=== PATIENT | male | born 1995 | race Caucasian/White ===

== ENCOUNTER 2020-12-31 18:08 | Emergency (ER) | payer OTHER ==
[2020-12-31 19:13] LABS: BASOPHILS % (AUTO) 0.3 %; EOSINOPHILS % (AUTO) 0.3 %; HGB - HEMOGLOBIN 14.8 g/dL (14.0-18.0); LYMPHOCYTES % (AUTO) 9.4 %; MEAN CORPUSCULAR HEMOGLOBIN 29.1 pg (27.0-31.0); MEAN CORPUSCULAR HGB CONC 33.6 g/dL (32.0-36.0); MEAN CORPUSCULAR VOLUME 86.4 fL (80.0-94.0); MEAN PLATELET VOLUME 9.6 fL (7.4-11.4); MONOCYTES # (AUTO) 0.6 10^3/uL (0.0-1.0); MONOCYTES % (AUTO) 6.4 %; NEUTROPHILS # (AUTO) 8.4 10^3/uL (1.5-6.6); NEUTROPHILS % (AUTO) 83.3 %; PLT - PLATELET COUNT 261 10^3/uL (130-450); RED BLOOD COUNT 5.09 10^6/uL (4.70-6.10); RED CELL DISTRIBUTION WIDTH 11.7 % (12.0-15.0); WHITE BLOOD COUNT 10.1 x10^3/uL (4.8-10.8)
[2020-12-31 19:24] LABS: ALBUMIN 4.8 g/dL (3.2-5.5); ALBUMIN/GLOBULIN RATIO 1.7 (1.0-2.2); BILIRUBIN,TOTAL 1.2 mg/dL (0.2-1.0); CALCIUM 9.3 mg/dL (8.5-10.3); TOTAL PROTEIN 7.7 g/dL (6.7-8.2)
[2020-12-31] MEDS ORDERED: ONDANSETRON ODT 4 MG TABLET TL STA (19:57)
[2020-12-31] MEDS ORDERED: LIDOCAINE VISCOUS 2% 15 ML UDC MM STA (19:57)
[2020-12-31 20:11] VITALS: BP 139/80
--- NOTE | 2020-12-31 20:55 | ED Physician Documentation ---
History of Present Illness - Stated complaint Stated Complaint: ABD PX - Chief complaint Chief Complaint: Abd Pain - Additonal information Additional information: 25-year-old male presents the emergency department for evaluation of epigastric abdominal pain nausea and vomiting. He attempted to do the chip challenge in which he eats chips that are coated with [place] reaper [place]'s. He states that he frequently eats spicy foods but not Carolina repair chili hot. Immediately thereafter he began having epigastric discomfort as well as nausea and vomiting. Nonbloody. He is feeling better despite no treatment here in the ER. As NSAID overuse tobacco use. Very infrequent social drinker. Review of Systems Constitutional: reports: Reviewed and negative Eyes: reports: Reviewed and negative Nose: reports: Reviewed and negative Throat: reports: Reviewed and negative Cardiac: reports: Reviewed and negative Respiratory: reports: Reviewed and negative GI: reports: Abdominal Pain, Nausea, Vomiting : reports: Reviewed and negative PD PAST MEDICAL HISTORY - Past Medical History Past Medical History: No - Present Medications Home Medications: Ambulatory Orders Medication Instructions Recorded Confirmed Pantoprazole Sodium [Protonix] 40 mg PO DAILY #30 tab 12/31/20 Sucralfate [Carafate] 1 gm PO ACHS #60 tablet 12/31/20 - Allergies Allergies/Adverse Reactions: Allergies Allergy/AdvReac Type Severity Reaction Status Date / Time No Known Drug Allergies Allergy Verified 12/31/20 18:18 - Social History Does the pt smoke?: No Smoking Status: Never smoker PD ED PE NORMAL - General General: Alert and oriented X 3, No acute distress - Neck Neck: Supple, no meningeal sign - Cardiac Cardiac: RRR, No murmur - Respiratory Respiratory: Clear bilaterally - Abdomen Abdomen: Normal bowel sounds, Soft, Non tender, Non distended - Back Back: No CVA TTP, No spinal TTP - Derm Derm: Normal color, No rash - Extremities Extremities: No deformity - Neuro Neuro: Alert and oriented X 3 Results - Vitals Vitals: Vital Signs - 24 hr 12/31/20 12/31/20 18:16 20:06 Temperature 36.6 C Heart Rate 61 81 Respiratory 16 16 Rate Blood Pressure 147/80 H 139/80 H O2 Saturation 100 99 Oxygen O2 Source Room air - Labs Labs: Laboratory Tests 12/31/20 12/31/20 19:06 19:06 WBC 10.1 RBC 5.09 Hgb 14.8 Hct 44.0 MCV 86.4 MCH 29.1 MCHC 33.6 RDW 11.7 L Plt Count 261 MPV 9.6 Neut # (Auto) 8.4 H Lymph # (Auto) 1.0 L [place] # (Auto) 0.6 Eos # (Auto) 0.0 Baso # (Auto) 0.0 Absolute Nucleated RBC 0.00 Nucleated RBC % 0.0 Sodium 136 Potassium 4.0 Chloride 97 L Carbon Dioxide 29 Anion Gap 10.0 BUN 16 Creatinine 1.0 Estimated GFR (MDRD) 90 Glucose 126 H Calcium 9.3 Total Bilirubin 1.2 H AST 39 ALT 27 Alkaline Phosphatase 77 Total Protein 7.7 Albumin 4.8 Globulin 2.9 Albumin/Globulin Ratio 1.7 Lipase 29 PD MEDICAL DECISION MAKING - ED course Complexity details: reviewed results, re-evaluated patient, considered differential, d/w patient ED course: 25-year-old male presents the emergency department for evaluation of epigastric abdominal pain nausea and vomiting after eating [place]'s that had Fengxiafeier juice on them. He immediately had epigastric burning and nausea and vomiting. Screening labs today are unremarkable. He reports that he frequently eats spicy foods though not this spicy. His symptoms fully resolved following Zofran and lidocaine. I discussed with the patient that excessive spicy food ingestion can lead to the risk of gastritis development. Patient will be started on Protonix and Carafate. Advise close follow-up with [facility]. If symptoms not markedly better he may need an EGD for evaluation of peptic ulcer disease. Emergent return precautions discussed for fevers, uncontrolled vomiting black or bloody stools. Departure - Departure Disposition: 01 Home, Self Care Clinical Impression: Gastritis Qualifiers: Gastritis type: unspecified gastritis Chronicity: acute Gastritis bleeding: without bleeding Qualified Code(s): K29.00 - Acute gastritis without bleeding Condition: Stable Record reviewed to determine appropriate education?: Yes Instructions: ED PUD Vs Gastritis Prescriptions: Sucralfate [Carafate] 1 gm PO ACHS #60 tablet Pantoprazole Sodium [Protonix] 40 mg PO DAILY #30 tab Comments: Benny you were seen in the emergency department today for epigastric abdominal pain and nausea and vomiting after eating chips that had the [place] reaper chili on them. This is a common complication of excessive spicy food. It is possible that you are developing gastritis or stomach inflammation. I do recommend that you cease the use of overly spicy foods and caffeine until your symptoms resolve. I have prescribed Protonix which is a medication to help reduce the acid in your stomach. I have also prescribed Carafate that should be taken at night. This will help coat your stomach and allow any ulcers to heal. Please follow-up with [facility] as soon as possible. If your symptoms or not improving you may benefit from referral to a data center engineer for an EGD. If at any point you have uncontrolled vomiting, develop fevers, have black or bloody stool then please return immediately to the ER for a second evaluation I [facility] [place].
== END 2020-12-31 21:00 | disposition home or self-care (01) ==
LOC: ED 18:08
DX: K29.00 Acute gastritis without bleeding (principal)
CPT/HCPCS: 36415; 80053; 83690; 85025; 99283; Q0162

== ENCOUNTER 2021-04-03 16:33 | Emergency (ER) | payer OTHER ==
--- NOTE | 2021-04-03 16:59 | XRAY Report ---
PROCEDURE: Ankle 3 View LT INDICATIONS: injury/pain TECHNIQUE: 3 views of the ankle were acquired. COMPARISON: None FINDINGS: Bones: No fractures or dislocations. Ankle mortise is normally aligned. No suspicious bony lesions . The talar dome demonstrates an unremarkable appearance. Soft tissues: No tibiotalar joint effusion. Achilles tendon appears normal. IMPRESSION: Negative for displaced fracture by plain film. Reviewed by: David Hernandez MD on 04/03/2021 3:58 PM [facility] Approved by: David Hernandez MD on 04/03/2021 3:58 PM [facility] Station ID: [id number]
--- NOTE | 2021-04-03 17:18 | ED Physician Documentation ---
History of Present Illness - Stated complaint Stated Complaint: LT ANKLE INJ - Chief complaint Chief Complaint: Ext Problem - History obtained from History obtained from: Patient - Additonal information Additional information: The patient comes to the emergency department chief complaint of posterior ankle pain on the left. He denies any distinct injury. He states that he has had to wear crocs for the last day because of the discomfort. He states symptoms started yesterday. He has had some very mild swelling in the area. No other complaints at this time. The patient denies any history of gout. He is not a diabetic. He is otherwise healthy. Review of Systems Ten Systems: 10 systems reviewed and negative Constitutional: reports: Reviewed and negative Eyes: reports: Reviewed and negative Ears: reports: Reviewed and negative Nose: reports: Reviewed and negative Throat: reports: Reviewed and negative Cardiac: reports: Reviewed and negative Respiratory: reports: Reviewed and negative GI: reports: Reviewed and negative : reports: Reviewed and negative Skin: reports: Reviewed and negative Musculoskeletal: reports: Extremity pain, Joint pain, Reviewed and negative Neurologic: reports: Reviewed and negative Psychiatric: reports: Reviewed and negative Endocrine: reports: Reviewed and negative Immunocompromised: reports: Reviewed and negative PD PAST MEDICAL HISTORY - Present Medications Home Medications: Ambulatory Orders Medication Instructions Recorded Confirmed Pantoprazole Sodium [Protonix] 40 mg PO DAILY #30 tab 12/31/20 Sucralfate [Carafate] 1 gm PO ACHS #60 tablet 12/31/20 - Allergies Allergies/Adverse Reactions: Allergies Allergy/AdvReac Type Severity Reaction Status Date / Time No Known Drug Allergies Allergy Verified 04/03/21 16:42 - Social History Does the pt smoke?: No Smoking Status: Never smoker PD ED PE NORMAL - Vitals Vital signs reviewed: Yes - General General: Alert and oriented X 3, No acute distress, Well developed/nourished - HEENT HEENT: Atraumatic, PERRL, EOMI, Moist mucous membranes - Neck Neck: Supple, no meningeal sign - Cardiac Cardiac: Strong equal pulses - Respiratory Respiratory: No respiratory distress - Derm Derm: Normal color, Warm and dry, No rash - Extremities Extremities: No deformity, No edema, Other - Neuro Neuro: Alert and oriented X 3, electronic intelligence officer 2-12 intact, Normal speech - Psych Psych: Normal mood, Normal affect Results - Vitals Vitals: Vital Signs - 24 hr 04/03/21 16:38 Temperature 35.7 C L Heart Rate 66 Respiratory 18 Rate Blood Pressure 146/90 H O2 Saturation 99 Oxygen O2 Source Room air - Rads (name of study) Left ankle x-ray Radiology: Final report received, EMP read indepedently, See rad report (Negative) PD MEDICAL DECISION MAKING - ED course Complexity details: reviewed results, re-evaluated patient, considered differential, d/w patient ED course: I discussed with the patient that his symptoms are most consistent with inflammation at the Achilles insertion site. We have discussed the self-limited nature of this condition, as well as symptomatic management at home and the usual indications for return. Departure - Departure Disposition: Home, Self Care Clinical Impression: Achilles tendinitis of left lower extremity Condition: Stable Instructions: Achilles Tendonitis Comments: Your x-rays look good. The area of your tenderness is consistent with tendinitis of the Achilles insertion site. This area can sometimes become inflamed spontaneously, even without a distinct injury. It is important to take anti-inflammatories Can stretch your calf muscles to help unburden the area. You should apply hot packs prior to stretching to gain maximum flexibility of your muscles and tendons. You may ice after the stretching to help with any inflammation that is residual. In general, the inflammation will down on its own, given time. You should avoid wearing shoes that pressure on the area, or doing any strenuous activities that work the area excessively. Please follow-up with your primary care physician if you have any further concerns. There is no evidence of infection, and this would be a very unusual and unlikely location for gout. Additionally, you did not have any of the external findings of gout.
[2021-04-03 17:37] VITALS: BP 132/88
== END 2021-04-03 17:37 | disposition home or self-care (01) ==
LOC: ED 16:33
DX: M76.62 Achilles tendinitis, left leg (principal)
CPT/HCPCS: 99282; 99283

== ENCOUNTER 2021-04-21 16:05 | Emergency (ER) | payer OTHER ==
[2021-04-21 16:21] VITALS: BP 155/74
--- NOTE | 2021-04-21 16:32 | ED Physician Documentation ---
PD HPI Fall - Stated complaint Stated Complaint: GLF ON ICE/HEAD & BODY PX - Chief complaint Chief Complaint: Back Pain - History obtained from History obtained from: Patient - History of Present Illness Mechanism of injury: Slipped Fall distance: Standing position Where injury occurred: Work (He states he slipped on snowy ice and fell immediately backwards onto his back and then head. He was wearing a helmet. He did not feel any loss of consciousness nor dazed. Slightly lightheaded when first stood up but then felt okay and worked through the day. Abrupt SHARMA at 2 pm.) Timing - onset: Today (about 8 am) Injury(ies) location: Head Associated symptoms: Other (some feeling of lightheaded when headache started.). No: LOC, AMS, Amnesia, Neck pain, Weakness, Paresthesias Symptoms improve with: Other (has not taken any meds since injury nor onset of SHARMA.). No: Rest Worsens with: Movement. No: Palpation Contributing factors: No: Anticoagulated, Intoxicated Similar symptoms before: Has not had sx before Recently seen: Not recently seen Review of Systems Constitutional: denies: Fever, Chills Nose: denies: Rhinorrhea / runny nose, Congestion Throat: denies: Sore throat Cardiac: denies: Chest pain / pressure Respiratory: denies: Cough GI: denies: Abdominal Pain, Nausea, Vomiting Musculoskeletal: denies: Neck pain, Back pain Neurologic: reports: Headache, Head injury. denies: Focal weakness, Numbness, Confused, LOC PD PAST MEDICAL HISTORY - Past Medical History Cardiovascular: None Respiratory: None Neuro: None Endocrine/Autoimmune: None - Present Medications Home Medications: Ambulatory Orders Medication Instructions Recorded Confirmed Pantoprazole Sodium [Protonix] 40 mg PO DAILY #30 tab 12/31/20 Sucralfate [Carafate] 1 gm PO ACHS #60 tablet 12/31/20 - Allergies Allergies/Adverse Reactions: Allergies Allergy/AdvReac Type Severity Reaction Status Date / Time No Known Drug Allergies Allergy Verified 04/21/21 16:20 - Social History Does the pt smoke?: No Smoking Status: Never smoker PD ED PE NORMAL - Vitals Vital signs reviewed: Yes - General General: Alert and oriented X 3, No acute distress, Well developed/nourished - HEENT HEENT: Atraumatic (no tenderness of scalp. ), PERRL, EOMI - Neck Neck: Supple, no meningeal sign, No bony TTP (but has some tender left lateral occipital ridge c/w trapezius insertion. ), No adenopathy - Cardiac Cardiac: RRR - Respiratory Respiratory: Clear bilaterally, Other (no chestwall tenderness. ) - Abdomen Abdomen: Soft, Non tender - Back Back: No CVA TTP, No spinal TTP - Derm Derm: Normal color, Warm and dry - Neuro Neuro: Alert and oriented X 3, leather leveler 2-12 intact, No motor deficit, No sensory deficit, Normal speech, Other Eye Opening: Spontaneous Motor: Obeys Commands Verbal: Oriented GCS Score: 15 Results - Vitals Vitals: Vital Signs - 24 hr 04/21/21 04/21/21 16:13 16:56 Temperature 36.4 C L Heart Rate 74 Respiratory 15 12 Rate Blood Pressure 155/74 H O2 Saturation 100 Oxygen O2 Source Room air PD MEDICAL DECISION MAKING - ED course Complexity details: reviewed results, considered differential (Fall on ice with striking head this morning and then abrupt onset moderately severe headache about 6 hours later associated with some feeling of lightheaded. Can get CT scan to ensure no delayed bleed etc.), d/w patient Departure - Departure Disposition: 01 Home, Self Care Clinical Impression: Fall due to ice or snow Qualifiers: Encounter type: initial encounter Qualified Code(s): W00.9XXA - Unspecified fall due to ice and snow, initial encounter Head contusion Qualifiers: Encounter type: initial encounter Contusion of head detail: scalp Qualified Code(s): S00.03XA - Contusion of scalp, initial encounter Neck muscle strain Qualifiers: Encounter type: initial encounter Qualified Code(s): S16.1XXA - Strain of muscle, fascia and tendon at neck level, initial encounter Condition: Stable Record reviewed to determine appropriate education?: Yes Instructions: ED Sprain Strain Neck, ED Contusion Scalp Comments: Your CT scan is normal without any signs of bleeding swelling or fractures of the head and upper neck. Expect to have some headache and neck stiffness over the next 2 to 3 days. Tylenol or ibuprofen if needed for pains. Consider some ibuprofen 3 times daily for the next 3 to 5 days and add Tylenol if needed. Heat and gentle stretching of the neck to reduce spasms and stiffness. Off work tomorrow to help rest the neck muscles etc. Recheck if not improving well over the next 2 to 3 days. Return if worse. Forms: Activity restrictions
[2021-04-21] MEDS ORDERED: IBUPROFEN 600 MG TABLET PO STA (16:39)
[2021-04-21] MEDS ORDERED: ACETAMINOPHEN 325 MG TABLET PO STA (16:39)
--- NOTE | 2021-04-21 17:29 | CT Report ---
PROCEDURE: CT brain without contrast INDICATIONS: struck head this AM; onset moderate SHARMA 2 pm TECHNIQUE: Noncontrast 4.5 mm thick angled axial sections acquired from the foramen magnum to the vertex. For r adiation dose reduction, the following was used: automated exposure control, adjustment of mA and/or kV according to patient size. COMPARISON: None. FINDINGS: Image quality: Excellent. CSF spaces: Basal cisterns are patent. No extra-axial fluid collections. Ventricles are normal in size and shape. Brain: No midline shift. No intracranial masses or hemorrhage. [place]-white matter interface is norm al. Skull and face: Calvarium and visualized facial bones are intact, without suspicious lesions. Sinuses: Visualized sinuses and mastoids are clear. Incidental pneumatization left middle turbinate IMPRESSION: Unremarkable CT brain without intracranial hemorrhage or mass effect Reviewed by: Neel Ballesteros MD on 04/21/2021 4:28 PM [facility] Approved by: Neel Ballesteros MD on 04/21/2021 4:28 PM [facility] Station ID: [id number]
== END 2021-04-21 17:59 | disposition home or self-care (01) ==
LOC: ED 16:05
DX: S00.03XA Contusion of scalp, initial encounter (principal); S16.1XXA Strain of muscle, fascia and tendon at neck level, initial encounter; W00.0XXA Fall on same level due to ice and snow, initial encounter; Y99.0 Civilian activity done for income or pay
CPT/HCPCS: 70450; 99282; 99284; A9270

== ENCOUNTER 2021-08-22 21:39 | Emergency (ER) | payer OTHER ==
[2021-08-22 21:53] VITALS: BP 159/87
[2021-08-22 23:47] LABS: RAPID STREP SCREEN Negative (Negative)
[2021-08-23 00:27] LABS: B. PARAPERTUSSIS- RESP PCR PAN NOT DETECTED; B. PERTUSSIS- RESP PCR PANEL NOT DETECTED; C. PNEUMONIAE- RESP PCR PANEL NOT DETECTED; CORONAVIRUS 229E-RESP PCR NOT DETECTED; CORONAVIRUS HKU1-RESP PCR NOT DETECTED; CORONAVIRUS NL63-RESP PCR NOT DETECTED; CORONAVIRUS OC43-RESP PCR NOT DETECTED; HUMAN METAPNEUMOVIRUS NOT DETECTED; INFLUENZA A H3- RESP PCR PANEL DETECTED; INFLUENZA A- RESP PCR PANEL NOT DETECTED; INFLUENZA B - RESP PCR PANEL NOT DETECTED; M. PNEUMONIAE- RESP PCR PANEL NOT DETECTED; PARAINFLUENZA VIRUS 1 NOT DETECTED; PARAINFLUENZA VIRUS 2 NOT DETECTED; PARAINFLUENZA VIRUS 3 NOT DETECTED; PARAINFLUENZA VIRUS 4 NOT DETECTED; RHINOVIRUS/ENTEROVIRUS NOT DETECTED; RSV- RESP PCR PANEL NOT DETECTED; SARS-CoV-2 -RESP PCR PANEL NOT DETECTED
--- NOTE | 2021-08-23 00:47 | ED Physician Documentation ---
History of Present Illness - Stated complaint Stated Complaint: CHILLS,FEVER,COUGH - Chief complaint Chief Complaint: General - History obtained from History obtained from: Patient - Additonal information Additional information: Patient is a 25-year-old male with no significant past medical history presenting for evaluation of 1 day history of fever, nonproductive cough, chills and body aches with nasal congestion. Patient is vaccinated for COVID. He has recently traveled and is unsure of any sick contacts. He also reports having a sore throat. He called the [facility] nurse advice line this evening to get recommendations on medications he could take but they directed him to the emergency department. Patient denies headache, chest pain, difficulty breathing, abdominal pain. Review of Systems Constitutional: reports: Fever, Myalgias Nose: reports: Congestion Throat: reports: Sore throat Cardiac: denies: Chest pain / pressure Respiratory: reports: Cough (Nonproductive). denies: Dyspnea GI: denies: Abdominal Pain, Vomiting : denies: Dysuria Skin: denies: Rash Musculoskeletal: denies: Neck pain, Back pain Neurologic: denies: Headache PD PAST MEDICAL HISTORY - Past Medical History Cardiovascular: None Respiratory: None Neuro: None Endocrine/Autoimmune: None - Present Medications Home Medications: Ambulatory Orders Medication Instructions Recorded Confirmed Pantoprazole Sodium [Protonix] 40 mg PO DAILY #30 tab 12/31/20 Sucralfate [Carafate] 1 gm PO ACHS #60 tablet 12/31/20 - Allergies Allergies/Adverse Reactions: Allergies Allergy/AdvReac Type Severity Reaction Status Date / Time No Known Drug Allergies Allergy Verified 08/22/21 21:51 - Social History Does the pt smoke?: No Smoking Status: Never smoker PD ED PE NORMAL - General General: Alert and oriented X 3, No acute distress, Well developed/nourished - HEENT HEENT: Atraumatic, Moist mucous membranes, Pharynx benign (No oral swelling or exudate) - Neck Neck: Supple, no meningeal sign, No bony TTP - Cardiac Cardiac: RRR, No murmur, Strong equal pulses - Respiratory Respiratory: No respiratory distress, Clear bilaterally - Abdomen Abdomen: Normal bowel sounds, Soft, Non tender, Non distended - Derm Derm: Warm and dry - Extremities Extremities: No edema - Neuro Neuro: Normal speech - Psych Psych: Normal mood Results - Vitals Vitals: Vital Signs - 24 hr 08/22/21 21:51 Temperature 36.6 C Heart Rate 78 Respiratory 18 Rate Blood Pressure 159/87 H O2 Saturation 96 Oxygen O2 Source Room air - Labs Labs: Laboratory Tests 08/22/21 08/22/21 23:23 23:23 Nasal Adenovirus (PCR) NOT DETECTED Nasal B. parapertussis DNA (PCR) NOT DETECTED Nasal Coronavir 229E PCR NOT DETECTED Nasal Coronavir HKU1 PCR NOT DETECTED Nasal Coronavir NL63 PCR NOT DETECTED Nasal Coronavir OC43 PCR NOT DETECTED Nasal Enterovir/Rhinovir PCR NOT DETECTED Nasal Influenza A H3 PCR DETECTED A Nasal Influenza B PCR NOT DETECTED Nasal Influenza A PCR NOT DETECTED Nasal Parainfluen 1 PCR NOT DETECTED Nasal Parainfluen 2 PCR NOT DETECTED Nasal Parainfluen 3 PCR NOT DETECTED Nasal Parainfluen 4 PCR NOT DETECTED Nasal RSV (PCR) NOT DETECTED Nasal B.pertussis DNA PCR NOT DETECTED Nasal C.pneumoniae (PCR) NOT DETECTED Hieu Human Metapneumo PCR NOT DETECTED Nasal M.pneumoniae (PCR) NOT DETECTED Nasal SARS-CoV-2 (PCR) NOT DETECTED Group A Strep Rapid Negative PD MEDICAL DECISION MAKING - ED course Complexity details: reviewed results, d/w patient ED course: Patient is a well-appearing 25-year-old male evaluated for fever, nonproductive cough and body aches. Strep test is negative. Respiratory swab is positive for influenza. I reviewed these results with the patient. He is overall very well-appearing, well-hydrated, and nonlabored with his breathing. Discussed treatment options for supportive care as well as return precautions. Departure - Departure Disposition: 01 Home, Self Care Clinical Impression: Influenza A Condition: Stable Instructions: ED Flu Comments: You were evaluated for fever, body aches, congestion and found to have influenza A. The treatment for the flu is aimed at the symptoms. Please use Motrin or Tylenol for fevers and pains. Please make sure you stay hydrated with drinking plenty of fluids and getting rest. You can try honey for your cough. You can also try [id number] medication such as Mucinex to help loosen any mucus. Return to the emergency department if you have worsening symptoms such as difficulty breathing. Forms: Activity restrictions Discharge Date/Time: 08/23/21 01:00
[2021-08-23] MEDS ORDERED: guaiFENesin/DEXTROMETHORPHAN 10 ML UDC PO STA (00:53)
[2021-08-23] MEDS ORDERED: guaiFENesin/DEXTROMETHORPHAN 10 ML UDC PO SCH (01:00)
== END 2021-08-23 01:00 | disposition home or self-care (01) ==
LOC: ED 21:39
DX: J10.1 Influenza due to other identified influenza virus with other respiratory manifestations (principal); Z20.822 Contact with and (suspected) exposure to COVID-19
CPT/HCPCS: 87070; 87430; 87633; 99282; 99283; A9270